=== PATIENT | male | born 1980 | race Caucasian/White ===

== ENCOUNTER 2019-07-12 18:24 | Emergency (ER) | payer BC ==
[~2019-07-12] VITALS: Ht 182.9 cm; Wt 111.4 kg
[2019-07-12 18:31] VITALS: TEMP 98.3
[2019-07-12] MEDS ORDERED: FLEXERIL 1010 MG/TAB PO (19:29)
[2019-07-12] MEDS ORDERED: NORCO 325 MG-51 TAB PO (19:29)
[2019-07-12 20:26] VITALS: BP 139/90; PULSE 71
== END 2019-07-12 20:28 | disposition home or self-care (01) ==
LOC: COL.ER 18:24
DX: S33.9XXA Sprain of unspecified parts of lumbar spine and pelvis, initial encounter (principal); Z98.890 Other specified postprocedural states; Z88.0 Allergy status to penicillin; X50.0XXA Overexertion from strenuous movement or load, initial encounter
CPT/HCPCS: J1885; J2270; J2360